=== PATIENT | male | born 1975 | race Caucasian/White ===

== ENCOUNTER 2017-02-22 10:15 | Emergency (ER) | payer OTHER ==
[~2017-02-22] VITALS: Ht 182.9 cm; Wt 90.0 kg
[2017-02-22 10:21] VITALS: BP 149/70; PULSE 97; RESP 16; O2SAT 96
[2017-02-22 10:45] VITALS: TEMP 98.6
[2017-02-22] MEDS ORDERED: BENZ100 PO (10:57)
--- NOTE | 2017-02-22 10:58 | PD ---
HPI Chief Complaint: Cold / Flu Symptoms Time Seen by Provider: 10:29 Travel History International Travel<30 days: No Contact w/Intl Traveler<30days: No Traveled to known affect area: No History of Present Illness HPI 41-year-old male here for evaluation of "flulike symptoms" 5 days. Patient reports body aches,congestion, and mild fatigue. He denies fever or chills, headache, neck pain, chest pain, cough, shortness of breath, abdominal pain. Severity is mild. He has not attempted to take any Tylenol or Motrin. No alleviating factors. [facility] Past Medical History Medical History: Denies Significant Hx Social History Alcohol Use: Yes Tobacco Use: No Substance Use: No Allergies-Medications (Allergen,Severity, Reaction): Coded Allergies: No Known Allergies (Unverified , 02/22/17) Reported Meds & Prescriptions Reported Meds & Active Scripts Active No Active Prescriptions or Reported Medications Review of Systems Except as stated in HPI: all other systems reviewed are Neg General / Constitutional: No: Fever Eyes: No: Visual changes HENT: No: Headaches Physical Exam Narrative GENERAL: Well-appearing male SKIN: Warm and dry. HEAD: Normocephalic. EYES: No scleral icterus. No injection or drainage. NECK: Supple, trachea midline. No JVD or lymphadenopathy. No meningismus CARDIOVASCULAR: Regular rate and rhythm without murmurs, gallops, or rubs. RESPIRATORY: Breath sounds equal bilaterally. No accessory muscle use. GASTROINTESTINAL: Abdomen soft, non-tender, nondistended. MUSCULOSKELETAL: No cyanosis, or edema. BACK: Nontender without obvious deformity. No CVA tenderness. Data Data Last Documented VS Vital Signs Date Time Temp Pulse Resp B/P (MAP) Pulse Ox O2 Delivery O2 Flow Rate FiO2 02/22/17 10:21 97 16 149/70 (96) 96 MDM Medical Decision Making Medical Screen Exam Complete: Yes Emergency Medical Condition: Yes Differential Diagnosis Influenza, viral infection, URI Narrative Course 41-year-old male here for evaluation of "flulike symptoms" 5 days. Patient reports body aches,congestion, and mild fatigue. He denies fever or chills, headache, neck pain, chest pain, cough, shortness of breath, abdominal pain. Severity is mild. He is nontoxic appearing. His vital signs are stable. His physical exam is essentially benign. His history and physical exam is consistent with a mild viral infection. Discussed symptomatic treatment. Diagnosis Primary Impression: Viral infection Referrals: Primary Care Physician Additional Instructions: Take [id number] Motrin [id number] milligrams every 6-8 hours as needed for pain. Stay well hydrated by drinking plenty of fluids. Take Tessalon Perles as needed for cough. Follow-up with your doctor Scripts Benzonatate (Tessalon Perles) 100 Mg Cap 100 MG PO TID Y for COUGH for 5 Days, CAP 0 Refills Prov: Maria Del Carmen Hull 02/22/17 Disposition: 01 DISCHARGE HOME Condition: Stable Maria Del Carmen Hull Feb 22, 2017 10:58
== END 2017-02-22 11:11 | disposition home or self-care (01) ==
LOC: PHEFT 10:15
DX: B34.9 Viral infection, unspecified (principal)
CPT/HCPCS: 99283

== ENCOUNTER 2017-02-26 15:12 | Observation (INO) | payer OTHER ==
[~2017-02-26] VITALS: Ht 182.9 cm; Wt 88.2 kg
[2017-02-26] VITALS (8 sets, daily range): BP systolic 115–130; BP diastolic 59–73; PULSE 79–102; RESP 16; TEMP 98.3–101.8; O2SAT 96–100
[~2017-02-26 15:12] MED LIST: BENZ100 PO
[2017-02-26] MEDS ORDERED: SODIUM CHLOR 0.9% 1000 ML INJ 1,000 ML IV ONE (16:30)
--- NOTE | 2017-02-26 16:57 | RADRPT ---
EXAM DATE/TIME: 02/26/2017 16:40 [facility] COMPARISON: No previous studies available for comparison. INDICATIONS : Chest discomfort, flu-like symptoms for 1 week MEDICAL HISTORY : None. SURGICAL HISTORY : None. ENCOUNTER: Initial ACUITY: 1 week PAIN SCORE: 0/10 LOCATION: Bilateral chest FINDINGS: Portable AP view of the chest demonstrates a normal-sized cardiac silhouette. No effusion, consolidat ion, or pneumothorax is visualized. The bones and soft tissues demonstrate no acute abnormality. CONCLUSION: No acute cardiopulmonary abnormality is identified. Amilcar Villar MD on February 26, 2017 at 16:55 Board Certified Radiologist. This report was verified electronically.
[2017-02-26 17:04] LABS: BLOOD, URINE SMALL (NEG); GLUCOSE,URINE NEG (NEG); KETONE, URINE 15 mg/dL (NEG); NITRITE,URINE NEG (NEG); PH, URINE 8.5 (5.0-8.5)
[2017-02-26 17:07] LABS: CHLORIDE 100 MEQ/L (98-107); SODIUM (NA) 135 MEQ/L (136-145)
[2017-02-26 17:11] LABS: ANION GAP 7 MEQ/L (5-15); BICARBONATE 28.2 MEQ/L (21.0-32.0); BLOOD UREA NITROGEN 9 MG/DL (7-18)
--- NOTE | 2017-02-26 17:13 | PD ---
HPI Chief Complaint: Cold / Flu Symptoms Time Seen by Provider: 16:16 Travel History International Travel<30 days: No Contact w/Intl Traveler<30days: No Traveled to known affect area: No History of Present Illness HPI 41-year-old male patient who had gotten a flu shot 2 weeks ago, was seen in the ER 5 days ago for flulike symptoms, diagnosed with viral illness, and was seen today in urgent care because his symptoms are not improving. He states he still having body aches, headaches, nausea, fevers. He denies any coughing, shortness of breath, chest pains, abdominal pains, or other symptoms. A flu test had been done earlier which was negative. He is concerned because the symptoms are not improving after 5 days. He denies any sick contacts. Patient admits he has also had dental work done last week as well. He denies any IV drug use or any new sex partners. Modifying Factors: None Associated Signs & Symptoms: Flulike symptoms, fevers, nausea, headaches for 5 days Risk Factors: Recent dental work PFSH Past Medical History Medical History: Denies Significant Hx Tetanus Vaccination: Unknown Influenza Vaccination: Yes Social History Alcohol Use: Yes (occas. beer) Tobacco Use: No Substance Use: No Allergies-Medications (Allergen,Severity, Reaction): Coded Allergies: No Known Allergies (Unverified , 02/26/17) Reported Meds & Prescriptions Reported Meds & Active Scripts Active Tessalon Perles (Benzonatate) 100 Mg Cap 100 Mg PO TID PRN 5 Days Review of Systems Except as stated in HPI: all other systems reviewed are Neg Physical Exam Narrative GENERAL: Well-developed middle age white male patient currently in mild distress. Awake and oriented 3. SKIN: Focused skin assessment warm/dry. HEAD: Atraumatic. Normocephalic. EYES: Pupils equal and round. No scleral icterus. No injection or drainage. ENT: Mucosa pink and moist. No erythema or exudates. No uvular edema. No uvular , palatal, or tonsillar deviation. Airway patent. NECK: Trachea midline. No JVD. Supple. CARDIOVASCULAR: Regular rate and rhythm. No murmur appreciated. RESPIRATORY: No accessory muscle use. Clear to auscultation. Breath sounds equal bilaterally. GASTROINTESTINAL: Abdomen soft, non-tender, nondistended. Hepatic and splenic margins not palpable. MUSCULOSKELETAL: No obvious deformities. No clubbing. No cyanosis. No edema. NEUROLOGICAL: Awake and alert. No obvious cranial nerve deficits. Motor grossly within normal limits. Normal speech. PSYCHIATRIC: Appropriate mood and affect; insight and judgment normal. Data Data Last Documented VS Vital Signs Date Time Temp Pulse Resp B/P (MAP) Pulse Ox O2 Delivery O2 Flow Rate FiO2 02/26/17 17:53 100 16 123/62 (82) 99 Room Air 02/26/17 15:45 101.8 Orders Orders Complete Blood Count With Diff (02/26/17 16:16) Comprehensive Metabolic Panel (02/26/17 16:16) Lactic Acid Sepsis Protocol (02/26/17 16:16) Urinalysis - C+S If Indicated (02/26/17 16:16) Influenzae A/B Antigen (02/26/17 16:16) Blood Culture (02/26/17 16:16) Chest, Single Ap (02/26/17 16:16) Blood Glucose (02/26/17 16:16) Ecg Monitoring (02/26/17 16:16) Iv Access Insert/Monitor (02/26/17 16:16) Oximetry (02/26/17 16:16) Oxygen Administration (02/26/17 16:16) Sodium Chlor 0.9% 1000 Ml Inj (Ns 1000 M (02/26/17 16:30) Us Abdomen Gallbladder (02/26/17 17:25) Ceftriaxone Inj (Rocephin Inj) (02/26/17 18:51) Ibuprofen (Motrin) (02/26/17 19:00) Vancomycin Inj (Vancomycin Inj) (02/26/17 19:15) Labs Laboratory Tests Test 02/26/17 16:25 02/26/17 16:45 White Blood Count 4.2 TH/MM3 Red Blood Count 4.33 MIL/MM3 Hemoglobin 12.9 GM/DL Hematocrit 37.3 % Mean Corpuscular Volume 86.0 FL Mean Corpuscular Hemoglobin 29.6 PG Mean Corpuscular Hemoglobin Concent 34.5 % Red Cell Distribution Width 12.4 % Platelet Count 109 TH/MM3 Mean Platelet Volume 9.7 FL CBC Comment AUTO DIFF Differential Total Cells Counted 100 Neutrophils % (Manual) 39 % Band Neutrophils % 13 % Lymphocytes % 46 % Monocytes % 2 % Neutrophils # (Manual) 2.2 TH/MM3 Differential Comment FINAL DIFF MANUAL Platelet Estimate LOW Platelet Morphology Comment NORMAL Red Cell Morphology Comment NORMAL Blood Urea Nitrogen 9 MG/DL Creatinine 0.77 MG/DL Random Glucose 95 MG/DL Total Protein 7.1 GM/DL Albumin 3.3 GM/DL Calcium Level 8.5 MG/DL Alkaline Phosphatase 183 U/L Aspartate Amino Transf (AST/SGOT) 172 U/L Alanine Aminotransferase (ALT/SGPT) 193 U/L Total Bilirubin 0.8 MG/DL Sodium Level 135 MEQ/L Potassium Level 4.0 MEQ/L Chloride Level 100 MEQ/L Carbon Dioxide Level 28.2 MEQ/L Anion Gap 7 MEQ/L Estimat Glomerular Filtration Rate 112 ML/MIN Lactic Acid Level 1.2 mmol/L Urine Color YELLOW Urine Turbidity CLEAR Urine pH 8.5 Urine Specific [place] 1.018 Urine Protein TRACE mg/dL Urine Glucose (UA) NEG mg/dL Urine Ketones 15 mg/dL Urine Occult Blood SMALL Urine Nitrite NEG Urine Bilirubin NEG Urine Leukocyte Esterase NEG Urine RBC 0-3 /hpf Urine Squamous Epithelial Cells 0-5 /hpf Microscopic Urinalysis Comment CATH-CULT NOT IND MDM Medical Decision Making Medical Screen Exam Complete: Yes Emergency Medical Condition: Yes Medical Record Reviewed: Yes Interpretation(s) Last 24 hours Impressions Gall Bladder Ultrasound 02/26/17 1725 Signed Impressions: Service Date/Time: Sunday, February 26, 2017 17:37 - CONCLUSION: Normal examination. Sean Donald Jr., MD Chest X-Ray 02/26/17 1616 Signed Impressions: Service Date/Time: Sunday, February 26, 2017 16:40 - CONCLUSION: No acute cardiopulmonary abnormality is identified. Amilcar Villar MD Laboratory Tests Test 02/26/17 16:25 02/26/17 16:45 Red Blood Count 4.33 MIL/MM3 (4.50-5.90) Hemoglobin 12.9 GM/DL (13.0-17.0) Hematocrit 37.3 % (39.0-51.0) Platelet Count 109 TH/MM3 (150-450) Band Neutrophils % 13 % (0-6) Lymphocytes % 46 % (9-44) Platelet Estimate LOW (NORMAL) Albumin 3.3 GM/DL (3.4-5.0) Alkaline Phosphatase 183 U/L (45-117) Aspartate Amino Transf (AST/SGOT) 172 U/L (15-37) Alanine Aminotransferase (ALT/SGPT) 193 U/L (12-78) Sodium Level 135 MEQ/L (136-145) Urine Ketones 15 mg/dL (NEG) Urine Occult Blood SMALL (NEG) Last 24 hours Impressions Gall Bladder Ultrasound 02/26/17 1725 Signed Impressions: Service Date/Time: Sunday, February 26, 2017 17:37 - CONCLUSION: Normal examination. Sean Donald Jr., MD Chest X-Ray 02/26/17 1616 Signed Impressions: Service Date/Time: Sunday, February 26, 2017 16:40 - CONCLUSION: No acute cardiopulmonary abnormality is identified. Amilcar Villar MD Differential Diagnosis Influenza versus viral illness versus sepsis Narrative Course Lab work did not show significant leukocytosis although does show bandemia and elevated lymphocyte counts. He did have some recent dental work done and it is uncertain whether this could be related to dental work, questionable valvular pathology before this issue. Cultures were done and IV antibiotics were initiated in the ER. Influenza test is negative. UA and chest x-ray was unremarkable. He is tachycardic and febrile the ER. I have tried to talk to the patient regarding findings and have talked about a lumbar puncture in order to rule out meningitis. A missed meningitis can cause further morbidity and mortality, and I have talked to the patient regarding this issue as well. However, he is declining LP at this time. Considering his history, and the fact that we cannot completely rule out underlying sepsis or meningitis, my plan would be to admit him for observation at this point. Diagnosis Primary Impression: Fever of unknown origin Admitting Information Admitting Physician Requests: Admit Dusty Mcallister MD Feb 26, 2017 17:13
[2017-02-26 17:14] LABS: ALT (GPT) 193 U/L (12-78); AST (GOT) 172 U/L (15-37); GLOMERULAR FILTRATION RATE 112 ML/MIN (>89)
[2017-02-26 17:15] LABS: COMMENT (UR) CATH-CULT NOT IND; CULTURE IF INDICATED CATH CULTURE NOT IND; RBC, URINE 0-3 /hpf (0-3); SQUAMOUS EPITHELIAL CELL URINE 0-5 /hpf (0-5); URINE COLOR YELLOW (YELLW/STRAW)
[2017-02-26 17:16] LABS: TOTAL BILIRUBIN ADULT 0.8 MG/DL (0.2-1.0)
[2017-02-26 17:17] LABS: ALKALINE PHOSPHATASE 183 U/L (45-117)
[2017-02-26 17:18] LABS: HEMATOCRIT 37.3 % (39.0-51.0); MEAN CORPUSCULAR HEMOGLOBIN 29.6 PG (27.0-34.0); MEAN CORPUSCULAR HGB CONC 34.5 % (32.0-36.0); PLATELET COUNT 109 TH/MM3 (150-450); RED BLOOD COUNT 4.33 MIL/MM3 (4.50-5.90); RED CELL DISTRIBUTION WIDTH 12.4 % (11.6-17.2); WHITE BLOOD COUNT 4.2 TH/MM3 (4.0-11.0)
[2017-02-26 17:29] LABS: HEMO FLAGS AUTO DIFF
[2017-02-26 18:06] LABS: BANDS 13 % (0-6); NEUTROPHIL # MANUAL DIFF 2.2 TH/MM3 (1.8-7.7); POLYS (SEG NEUTROPHILS) 39 % (16-70); WBC DIFF SAMPLE 100
[2017-02-26 18:07] LABS: PLATELET ESTIMATE SMEAR LOW (NORMAL); PLATELET MORPHOLOGY NORMAL (NORMAL); SCAN/DIFF FINAL DIFF MANUAL
--- NOTE | 2017-02-26 18:35 | RADRPT ---
EXAM DATE/TIME: 02/26/2017 17:37 [facility] COMPARISON: No previous studies available for comparison. INDICATIONS : Nausea and vomiting after having the flu shot five days ago. MEDICAL HISTORY : Nausea and vomiting. SURGICAL HISTORY : None. ENCOUNTER: Initial ACUITY: 4-6 days PAIN SCORE: 0/10 LOCATION: Right upper quadrant MEASUREMENTS: LIVER: 18.8 cm length COMMON DUCT: 3 mm RIGHT KIDNEY: 12.7 x 5.0 x 5.2 cm FINDINGS: LIVER: Normal echotexture without focal lesion or ductal dilatation. COMMON DUCT: No intraluminal mass or stone visualized. GALLBLADDER: Contains no stones, demonstrates no wall thickening or pericholecystic fluid. PANCREAS: The visualized portions are within normal limits. RIGHT KIDNEY: No evidence of hydronephrosis, stone, or mass. CONCLUSION: Normal examination. Sean Donald Jr., MD on February 26, 2017 at 18:32 Board Certified Radiologist. This report was verified electronically.
[2017-02-26] MEDS ORDERED: cefTRIAXone INJ 2,000 MG in SODIUM CHLORIDE 0.9% INJ 100 ML IV STA (18:51)
[2017-02-26] MEDS ORDERED: IBUPROFEN 600 MG TAB PO ONE (19:00)
[2017-02-26] MEDS ORDERED: VANCOMYCIN INJ 1,000 MG in SODIUM CHLOR 0.9% 250 ML INJ 250 ML IV ONE (19:15)
[2017-02-26] MEDS ORDERED: BENZONATATE 100 MG CAP PO PRN (20:30)
--- NOTE | 2017-02-26 20:35 | HHI.HP ---
HPI Service [facility] Primary Care Physician Pj Fowler MD Admission Diagnosis fever of unknown origin/elevated LFTs Chief Complaint: 1 week of fever Travel History International Travel<30 Days: No Contact w/Intl Traveler <30 Da: No Traveled to Known Affected Are: No History of Present Illness 41-year-old male patient who had gotten a flu shot 2 weeks ago, was seen in the ER 5 days ago for flulike symptoms, diagnosed with viral illness, and was seen today in urgent care because his symptoms are not improving. He states he still having body aches, headaches, nausea, fevers. He denies any coughing, shortness of breath, chest pains, abdominal pains, or other symptoms. A flu test had been done earlier which was negative. He is concerned because the symptoms are not improving after 5 days. He denies any sick contacts. Patient admits he has also had dental work done last week as well,teeth cleaning and tightening braces. He denies any IV drug use or any new sex partners. In er was found to have elevated LFT will admit ID evaluation recheck labs . Review of Systems Constitutional: COMPLAINS OF: Fatigue, Fever, Chills Other headache Past Family Social History Past Medical History none Past Surgical History knee surgery as teenager Reported Medications was given cough capsules in urgent care but has no cough Allergies: Coded Allergies: No Known Allergies (Unverified , 02/26/17) Social History occ beer non smoker Physical Exam Vital Signs Vital Signs Date Time Temp Pulse Resp B/P (MAP) Pulse Ox O2 Delivery O2 Flow Rate FiO2 02/26/17 19:00 98.8 92 16 119/67 (84) 96 Room Air 02/26/17 19:00 16 96 Room Air 02/26/17 17:53 100 16 123/62 (82) 99 Room Air 02/26/17 16:44 100 Room Air 02/26/17 16:44 16 100 Room Air 02/26/17 15:45 101.8 102 16 117/73 (88) 99 Room Air 02/26/17 15:36 96 16 100 Room Air 02/26/17 15:18 100.0 98 16 130/73 (92) 100 Physical Exam GENERAL: This is a well-nourished, well-developed patient, in no apparent distress. SKIN: No rashes, ecchymoses or lesions. Cool and dry. HEAD: Atraumatic. Normocephalic. No temporal or scalp tenderness. EYES: Pupils equal round and reactive. Extraocular motions intact. No scleral icterus. No injection or drainage. ENT: Nose without bleeding, purulent drainage or septal hematoma. Throat without erythema, tonsillar hypertrophy or exudate. Uvula midline. Airway patent. NECK: Trachea midline. No JVD or lymphadenopathy. Supple, nontender, no meningeal signs. CARDIOVASCULAR: Regular rate and rhythm without murmurs, gallops, or rubs. RESPIRATORY: Clear to auscultation. Breath sounds equal bilaterally. No wheezes , rales, or rhonchi. GASTROINTESTINAL: Abdomen soft, non-tender, nondistended. No hepato-splenomegaly , or palpable masses. No guarding. MUSCULOSKELETAL: Extremities without clubbing, cyanosis, or edema. No joint tenderness, effusion, or edema noted. No calf tenderness. Negative Homans sign bilaterally. NEUROLOGICAL: Awake and alert. Cranial nerves II through XII intact. Motor and sensory grossly within normal limits. Five out of 5 muscle strength in all muscle groups. Normal speech. Laboratory Laboratory Tests Test 02/26/17 16:25 02/26/17 16:45 White Blood Count 4.2 Red Blood Count 4.33 Hemoglobin 12.9 Hematocrit 37.3 Mean Corpuscular Volume 86.0 Mean Corpuscular Hemoglobin 29.6 Mean Corpuscular Hemoglobin Concent 34.5 Red Cell Distribution Width 12.4 Platelet Count 109 Mean Platelet Volume 9.7 CBC Comment AUTO DIFF Differential Total Cells Counted 100 Neutrophils % (Manual) 39 Band Neutrophils % 13 Lymphocytes % 46 Monocytes % 2 Neutrophils # (Manual) 2.2 Differential Comment FINAL DIFF MANUAL Platelet Estimate LOW Platelet Morphology Comment NORMAL Red Cell Morphology Comment NORMAL Blood Urea Nitrogen 9 Creatinine 0.77 Random Glucose 95 Total Protein 7.1 Albumin 3.3 Calcium Level 8.5 Alkaline Phosphatase 183 Aspartate Amino Transf (AST/SGOT) 172 Alanine Aminotransferase (ALT/SGPT) 193 Total Bilirubin 0.8 Sodium Level 135 Potassium Level 4.0 Chloride Level 100 Carbon Dioxide Level 28.2 Anion Gap 7 Estimat Glomerular Filtration Rate 112 Lactic Acid Level 1.2 Urine Color YELLOW Urine Turbidity CLEAR Urine pH 8.5 Urine Specific [place] 1.018 Urine Protein TRACE Urine Glucose (UA) NEG Urine Ketones 15 Urine Occult Blood SMALL Urine Nitrite NEG Urine Bilirubin NEG Urine Leukocyte Esterase NEG Urine RBC 0-3 Urine Squamous Epithelial Cells 0-5 Microscopic Urinalysis Comment CATH-CULT NOT IND Date/Time Source Procedure Growth Status 02/26/17 16:36 Blood Peripheral Aerobic Blood Culture Pending Received 02/26/17 16:36 Blood Peripheral Anaerobic Blood Culture Pending Received 02/26/17 16:30 Nasal Washing Influenza Types A,B Antigen (BONNIE) - Final NEGATIVE FOR FLU A AND B ANTIGEN.... Complete Result Diagram: 02/26/17 1625 02/26/17 1625 Imaging Last 24 hours Impressions Gall Bladder Ultrasound 02/26/17 1725 Signed Impressions: Service Date/Time: Sunday, February 26, 2017 17:37 - CONCLUSION: Normal examination. Sean Donald Jr., MD Chest X-Ray 02/26/17 1616 Signed Impressions: Service Date/Time: Friday, February 26, 2017 16:40 - CONCLUSION: No acute cardiopulmonary abnormality is identified. Amilcar Villar MD Course in er was started on vancomycin and rocephin,to cover possible meningitis , patient declined LP really has no neurologic changes except headache Caprini VTE Risk Assessment Caprini VTE Risk Assessment: No/Low Risk (score <= 1) Caprini Risk Assessment Model Point Value = 1 Point Value = 2 Point Value = 3 Point Value = 5 Age 41-60 Minor surgery BMI > 25 kg/m2 Swollen legs Varicose veins or History of unexplained or recurrent spontaneous Oral contraceptives or hormone replacement Sepsis (< 1 month) Serious lung disease, including pneumonia (< 1 month) Abnormal pulmonary function Acute myocardial infarction Congestive heart failure (< 1 month) History of inflammatory bowel disease Medical patient at bed rest Age 61-74 Arthroscopic surgery Major open surgery (> 45 min) Laparoscopic surgery (> 45 min) Malignancy Confined to bed (> 72 hours) Immobilizing plaster cast Central venous access Age >= 75 History of VTE Family history of VTE Factor V Leiden Prothrombin [id number] Lupus anticoagulant Anticardiolipin antibodies Elevated serum homocysteine Heparin-induced thrombocytopenia Other congenital or acquired thrombophilia Stroke (< 1 month) Elective arthroplasty Hip, pelvis, or leg fracture Acute spinal cord injury (< 1 month) Prophylaxis Regimen Total Risk Factor Score Risk Level Prophylaxis Regimen 0-1 Low Early ambulation 2 Moderate Order ONE of the following: *Sequential Compression Device (SCD) *Heparin 5000 units SQ BID 3-4 Higher Order ONE of the following medications: *Heparin 5000 units SQ TID *Enoxaparin/Lovenox 40 mg SQ daily (WT < 150 kg, CrCl > 30 mL/min) *Enoxaparin/Lovenox 30 mg SQ daily (WT < 150 kg, CrCl > 10-29 mL/min) *Enoxaparin/Lovenox 30 mg SQ BID (WT < 150 kg, CrCl > 30 mL/min) AND/OR *Sequential Compression Device (SCD) 5 or more Highest Order ONE of the following medications: *Heparin 5000 units SQ TID (Preferred with Epidurals) *Enoxaparin/Lovenox 40 mg SQ daily (WT < 150 kg, CrCl > 30 mL/min) *Enoxaparin/Lovenox 30 mg SQ daily (WT < 150 kg, CrCl > 10-29 mL/min) *Enoxaparin/Lovenox 30 mg SQ BID (WT < 150 kg, CrCl > 30 mL/min) AND *Sequential Compression Device (SCD) Assessment and Plan Problem List: (1) Fever of unknown origin ICD Codes: R50.9 - Fever, unspecified Status: Acute Plan: obtain blood cultures chest xray normal empiric on rocephin and vancomycin will get ID evaluation obtain CT abdomen for further evaluation (2) Elevated LFTs ICD Codes: R79.89 - Other specified abnormal findings of blood chemistry Plan: obtain hepatitis profile and follow up labs CT abdomen Assessment and Plan further plan as case progresses Code Status full Discussed Condition With patient Harry Vernon MD Feb 26, 2017 20:35
[2017-02-26] MEDS ORDERED: SENNOSIDES 8.6 MG TAB PO PRN (20:45)
[2017-02-26] MEDS ORDERED: SODIUM CHLORIDE 0.9% FLUSH 10 ML FLUSH IV FLUSH PRN (20:45)
[2017-02-26] MEDS ORDERED: NALOXONE HCL 0.4 MG/ML AMP IV PUSH PRN (20:45)
[2017-02-26] MEDS ORDERED: MAGNESIUM HYDROXIDE SUSP 30 ML CUP PO PRN (20:45)
[2017-02-26] MEDS ORDERED: BISACODYL 10 MG SUPP RECTAL PRN (20:45)
[2017-02-26] MEDS ORDERED: LACTULOSE SYRUP 20 GM/30 ML CUP PO PRN (20:45)
[2017-02-26] MEDS ORDERED: ONDANSETRON HCL 4 MG/2 ML VIAL IVP PRN (20:45)
[2017-02-26] MEDS ORDERED: Vancomycin Consult Pharmacy 1 EA OTHER SCH (21:00)
[2017-02-26] MEDS: DOCUSATE SODIUM 50 MG/SENNA 8.6 MG TAB PO SCH (21:00)
[2017-02-26] MEDS: SODIUM CHLORIDE 0.9% FLUSH 10 ML FLUSH IV FLUSH SCH (21:48)
--- NOTE | 2017-02-26 21:51 | RADRPT ---
EXAM DATE/TIME: 02/26/2017 21:29 [facility] COMPARISON: No previous studies available for comparison. INDICATIONS : Fever. ORAL CONTRAST: No oral contrast ingested. RADIATION DOSE: 16.36 CTDIvol (mGy) MEDICAL HISTORY : None SURGICAL HISTORY : None. ENCOUNTER: Initial ACUITY: 1 week PAIN SCALE: 0/10 LOCATION: abdomen TECHNIQUE: Volumetric scanning of the abdomen was performed. Using automated exposure control and adjustment of the mA and/or kV according to patient size, radiation dose was kept as low as reasonably achievable to obtain optimal diagnostic quality images. DICOM format image data is available electronically for review and comparison. FINDINGS: LOWER LUNGS: The visualized lower lungs are clear. LIVER: Homogeneous density without lesion. There is no dilation of the biliary tree. No calcified gallston es. SPLEEN: Normal size without lesion. PANCREAS: Within normal limits. KIDNEYS: Normal in size and shape. There is no mass, stone, or hydronephrosis. ADRENAL GLANDS: Within normal limits. AORTA/RETROPERITONEAL: There is no aneurysm or lymphadenopathy. BOWEL/MESENTERY: The stomach and visualized small and large bowel demonstrate no abnormality. MUSCULOSKELETAL: Within normal limits for patient age. CONCLUSION: Normal examination. Sean Donald Jr., MD on February 26, 2017 at 21:48 Board Certified Radiologist. This report was verified electronically.
[2017-02-26] MEDS: TEMAZEPAM 15 MG CAP PO PRN (22:13)
[2017-02-27] VITALS (7 sets, daily range): BP systolic 115–119; BP diastolic 64–74; PULSE 80–103; RESP 14–16; TEMP 96.7–101.3; O2SAT 95–99
[2017-02-27] MEDS: VANCOMYCIN INJ 1,800 MG in SODIUM CHLORID 0.9% 500 ML INJ 500 ML IV SCH ×2 (03:24→16:26)
[2017-02-27] MEDS: IBUPROFEN 400 MG TAB PO PRN ×2 (05:50→11:08)
[2017-02-27 06:33] LABS: HEMATOCRIT 36.5 % (39.0-51.0); MEAN CELL VOLUME 87.6 FL (80.0-100.0); MEAN CORPUSCULAR HEMOGLOBIN 30.3 PG (27.0-34.0); MEAN CORPUSCULAR HGB CONC 34.6 % (32.0-36.0); PLATELET COUNT 98 TH/MM3 (150-450); RED BLOOD COUNT 4.17 MIL/MM3 (4.50-5.90); RED CELL DISTRIBUTION WIDTH 12.7 % (11.6-17.2); WHITE BLOOD COUNT 3.9 TH/MM3 (4.0-11.0)
[2017-02-27 06:40] LABS: CHLORIDE 104 MEQ/L (98-107); SODIUM (NA) 139 MEQ/L (136-145)
[2017-02-27 06:43] LABS: ANION GAP 5 MEQ/L (5-15); BICARBONATE 30.4 MEQ/L (21.0-32.0)
[2017-02-27 06:44] LABS: BLOOD UREA NITROGEN 11 MG/DL (7-18); HEMO FLAGS AUTO DIFF
[2017-02-27 06:46] LABS: ALT (GPT) 223 U/L (12-78)
[2017-02-27 06:47] LABS: AST (GOT) 222 U/L (15-37); GLOMERULAR FILTRATION RATE 111 ML/MIN (>89)
[2017-02-27 06:48] LABS: TOTAL BILIRUBIN ADULT 0.8 MG/DL (0.2-1.0)
[2017-02-27 06:49] LABS: ALKALINE PHOSPHATASE 206 U/L (45-117)
[2017-02-27 07:55] LABS: ATYPICAL LYMPHOCYTES 29 % (0-0); BANDS 4 % (0-6); NEUTROPHIL # MANUAL DIFF 1.5 TH/MM3 (1.8-7.7); POLYS (SEG NEUTROPHILS) 34 % (16-70); WBC DIFF SAMPLE 100
[2017-02-27 07:56] LABS: PLATELET ESTIMATE SMEAR LOW (NORMAL); PLATELET MORPHOLOGY NORMAL (NORMAL); SCAN/DIFF FINAL DIFF MANUAL
[2017-02-27] MEDS: DOCUSATE SODIUM 50 MG/SENNA 8.6 MG TAB PO SCH ×2 (09:00→22:54)
[2017-02-27] MEDS: SODIUM CHLORIDE 0.9% FLUSH 10 ML FLUSH IV FLUSH SCH ×2 (09:33→23:01)
--- NOTE | 2017-02-27 10:17 | HHI.PR ---
Subjective Remarks Patient feeling a little better regarding headache but did have temperature 101 last night and on today's blood test liver function increased a little ,await ID will also ask GI to see hepatitis panel pending. Objective Vitals GENERAL: SKIN: Warm and dry. HEAD: Atraumatic. Normocephalic. EYES: Pupils equal and round. No scleral icterus. No injection or drainage. ENT: No nasal bleeding or discharge. Mucous membranes pink and moist. NECK: Trachea midline. No JVD. CARDIOVASCULAR: Regular rate and rhythm. RESPIRATORY: No accessory muscle use. Clear to auscultation. Breath sounds equal bilaterally. GASTROINTESTINAL: Abdomen soft, non-tender, nondistended. Hepatic and splenic margins not palpable. MUSCULOSKELETAL: Extremities without clubbing, cyanosis, or edema. No obvious deformities. NEUROLOGICAL: Awake and alert. No obvious cranial nerve deficits. Motor grossly within normal limits. Five out of 5 muscle strength in the arms and legs. Normal speech. PSYCHIATRIC: Appropriate mood and affect; insight and judgment normal. Vital Signs Date Time Temp Pulse Resp B/P (MAP) Pulse Ox O2 Delivery O2 Flow Rate FiO2 02/27/17 07:00 18 02/27/17 05:46 101.3 02/27/17 04:00 98.5 85 16 115/68 (84) 99 02/27/17 00:00 98.3 80 16 115/64 (81) 99 02/26/17 23:59 79 02/26/17 21:00 98.3 80 16 115/64 (81) 99 02/26/17 20:41 98.3 95 16 122/59 (80) 96 02/26/17 19:00 98.8 92 16 119/67 (84) 96 Room Air 02/26/17 19:00 16 96 Room Air 02/26/17 17:53 100 16 123/62 (82) 99 Room Air 02/26/17 16:44 100 Room Air 02/26/17 16:44 16 100 Room Air 02/26/17 15:45 101.8 102 16 117/73 (88) 99 Room Air 02/26/17 15:36 96 16 100 Room Air 02/26/17 15:18 100.0 98 16 130/73 (92) 100 Result Diagram: 02/27/17 0555 02/27/17 0555 Imaging Last 24 hours Impressions Gall Bladder Ultrasound 02/26/17 1725 Signed Impressions: Service Date/Time: Sunday, February 26, 2017 17:37 - CONCLUSION: Normal examination. Sean Donald Jr., MD Chest X-Ray 02/26/17 1616 Signed Impressions: Service Date/Time: Sunday, February 26, 2017 16:40 - CONCLUSION: No acute cardiopulmonary abnormality is identified. Amilcar Villar MD A/P Problem List: (1) Fever of unknown origin ICD Codes: R50.9 - Fever, unspecified Status: Acute Plan: obtain blood cultures chest xray normal empiric on rocephin and vancomycin will get ID evaluation ,CT abd-normal ultrasound and cxr normal blood c/s pending hepatits panel pending ,did have temp [id number] last night (2) Elevated LFTs ICD Codes: R79.89 - Other specified abnormal findings of blood chemistry Plan: i will get GI evaluation as LFT have increased Assessment and Plan as above have added mono test Harry Vernon MD Feb 27, 2017 10:17
--- NOTE | 2017-02-27 17:30 | PD.CONS ---
History of Present Illness Service ID CONSULT DR HANKINS Consult Requested By Reason for Consult FEVER Primary Care Physician Pj Fowler MD Diagnoses: (1) Fever of unknown origin (2) Elevated LFTs History of Present Illness 41 yr old male in routine health until a week after he had the flu vaccine. He had a flu shot 02/11 and the evening of [place] after being out with his children started to have sweats and aches. He continued to worsen over the week and finally came in to ER. He did not have any nvd. No sob or cough. He has not had any new medication. He has not had any falls. No recent travel. He has not had any other sick contact. He has an and young son and his all healthy at home. No dysuria. He is feeling better today. 2 days after he began to feel poorly he had a routine dental procedure and felt they did injure his gums. Hes not had any risky behaviors. No drug use. No new sexual partner. NO tattoos. Hepatitis panel is negative. US abd normal. CXR is clear. He is currently on rocephin ./ vancomycin . (Alaina Reid) History of Present Illness Reviewed history with patient. Some bug bites 1 1/2 weeks before symptoms (Kassidy Hankins MD) Review of Systems Constitutional: COMPLAINS OF: Fever, Night Sweats Gastrointestinal: DENIES: Abdominal pain, Black stools, Bloody stools, Constipation, Diarrhea, Nausea, Vomiting Musculoskeletal: COMPLAINS OF: Neck pain (since admission), DENIES: Stiffness Integumentary: DENIES: Abnormal pigmentation Hematologic/lymphatic: DENIES: Lymphadenopathy Neurologic: COMPLAINS OF: Headache (since admission ), DENIES: Localized weakness Psychiatric: DENIES: Depression (Alaina Reid) Past Family Social History Allergies: Coded Allergies: No Known Allergies (Unverified , 02/26/17) Past Medical History Past Medical History none Past Surgical History Past Surgical History knee surgery as teenager Reported Medications Reported Medications was given cough capsules in urgent care but has no cough Family History Family reviewed and benign from [facility] Social History NONE SMOKER NO ETOH NO ILLICIT DRUG USE (Alaina Reid) Physical Exam Vital Signs Vital Signs Date Time Temp Pulse Resp B/P (MAP) Pulse Ox O2 Delivery O2 Flow Rate FiO2 02/27/17 12:08 18 02/27/17 12:00 97.5 86 16 119/74 (89) 95 02/27/17 08:00 99.2 103 14 117/66 (83) 95 02/27/17 05:46 101.3 02/27/17 04:00 98.5 85 16 115/68 (84) 99 02/27/17 00:00 98.3 80 16 115/64 (81) 99 02/26/17 23:59 79 02/26/17 21:00 98.3 80 16 115/64 (81) 99 02/26/17 20:41 98.3 95 16 122/59 (80) 96 02/26/17 19:00 98.8 92 16 119/67 (84) 96 Room Air 02/26/17 19:00 16 96 Room Air 02/26/17 17:53 100 16 123/62 (82) 99 Room Air Physical Exam GENERAL: This is a well-nourished, well-developed patient, in no apparent distress. SKIN: No rashes, ecchymoses or lesions. Cool and dry. HEAD: Atraumatic. Normocephalic. No temporal or scalp tenderness. EYES: Pupils equal round and reactive. Extraocular motions intact. No scleral icterus. No injection or drainage. ENT: Nose without bleeding, purulent drainage or septal hematoma. Throat without erythema, tonsillar hypertrophy or exudate. Uvula midline. Airway patent. NECK: Trachea midline. No JVD or lymphadenopathy. Supple, nontender, no meningeal signs. CARDIOVASCULAR: Regular rate and rhythm without murmurs, gallops, or rubs. RESPIRATORY: Clear to auscultation. Breath sounds equal bilaterally. No wheezes , rales, or rhonchi. GASTROINTESTINAL: Abdomen soft, non-tender, nondistended. No hepato-splenomegaly , or palpable masses. No guarding. MUSCULOSKELETAL: Extremities without clubbing, cyanosis, or edema. No joint tenderness, effusion, or edema noted. No calf tenderness. Negative Homans sign bilaterally. NEUROLOGICAL: Awake and alert. Cranial nerves II through XII intact. Motor and sensory grossly within normal limits. Five out of 5 muscle strength in all muscle groups. Normal speech. Laboratory Laboratory Tests Test 02/27/17 05:55 02/27/17 10:17 White Blood Count 3.9 Red Blood Count 4.17 Hemoglobin 12.6 Hematocrit 36.5 Mean Corpuscular Volume 87.6 Mean Corpuscular Hemoglobin 30.3 Mean Corpuscular Hemoglobin Concent 34.6 Red Cell Distribution Width 12.7 Platelet Count 98 Mean Platelet Volume 9.4 CBC Comment AUTO DIFF Differential Total Cells Counted 100 Neutrophils % (Manual) 34 Band Neutrophils % 4 Lymphocytes % 30 Monocytes % 3 Neutrophils # (Manual) 1.5 Differential Comment FINAL DIFF MANUAL Atypical Lymphocytes 29 Platelet Estimate LOW Platelet Morphology Comment NORMAL Red Cell Morphology Comment NORMAL Blood Urea Nitrogen 11 Creatinine 0.78 Random Glucose 114 Total Protein 6.8 Albumin 3.0 Calcium Level 7.9 Alkaline Phosphatase 206 Aspartate Amino Transf (AST/SGOT) 222 Alanine Aminotransferase (ALT/SGPT) 223 Total Bilirubin 0.8 Sodium Level 139 Potassium Level 4.0 Chloride Level 104 Carbon Dioxide Level 30.4 Anion Gap 5 Estimat Glomerular Filtration Rate 111 Gamma Glutamyl Transpeptidase 387 Hepatitis A IgM Antibody NEGATIVE Hepatitis B Surface Antigen NEGATIVE Hepatitis B Core IgM Antibody NEGATIVE Hepatitis C Antibody NEGATIVE Monoscreen NEG Date/Time Source Procedure Growth Status 02/26/17 16:36 Blood Peripheral Aerobic Blood Culture - Preliminary NO GROWTH IN 1 DAY Resulted 02/26/17 16:36 Blood Peripheral Anaerobic Blood Culture - Preliminary NO GROWTH IN 1 DAY Resulted 02/26/17 16:30 Nasal Washing Influenza Types A,B Antigen (BONNIE) - Final NEGATIVE FOR FLU A AND B ANTIGEN.... Complete (Alaina Reid) Physical Exam No rash Chest : Clear Heart S 1 S2 normal (Kassidy Hankins MD) Result Diagram: 02/27/1755 02/27/17 0555 Assessment and Plan Problem List: (1) Fever of unknown origin ICD Codes: R50.9 - Fever, unspecified Status: Acute Plan: bc negative will monitor cultures check lipase amylase will need hiv screen continue vancomycin for now further orders to follow (2) Elevated LFTs ICD Codes: R79.89 - Other specified abnormal findings of blood chemistry Plan: worse today would stop rocephin it could cause elevated lfts check lipase amylase gi following (Alaina Reid) Problem List: (1) Fever of unknown origin ICD Codes: R50.9 - Fever, unspecified Status: Acute Plan: bc negative will monitor cultures check lipase amylase will need hiv screen continue vancomycin for now further orders to follow Check EBV and CMV serology (2) Elevated LFTs ICD Codes: R79.89 - Other specified abnormal findings of blood chemistry Plan: worse todays check lipase amylase GI following Re check LFTS Hepatitis profile negative (Kassidy Hankins MD) Alaina Reid Feb 27, 2017 17:30 Kassidy Hankins MD Feb 27, 2017 18:26
[2017-02-27] MEDS ORDERED: cefTRIAXone INJ 1,000 MG in SODIUM CHLORIDE 0.9% INJ 100 ML IV SCH (19:00)
[2017-02-27 20:48] LABS: AMYLASE 38 U/L (25-115)
[2017-02-27] MEDS: TEMAZEPAM 15 MG CAP PO PRN (23:01)
[2017-02-28] VITALS: BP 117/66; PULSE 100; RESP 16; TEMP 101.4; O2SAT 96
[2017-02-28 00:57] LABS: EBV VCA IgM Negative (Negative)
[2017-02-28 02:00] VITALS: BP 117/66; PULSE 85; RESP 16; TEMP 101.4; O2SAT 97
[2017-02-28] MEDS: IBUPROFEN 400 MG TAB PO PRN (02:15)
[2017-02-28] MEDS: VANCOMYCIN INJ 1,800 MG in SODIUM CHLORID 0.9% 500 ML INJ 500 ML IV SCH (03:56)
[2017-02-28 04:00] VITALS: BP 118/71; PULSE 80; RESP 16; O2SAT 98
[2017-02-28 04:11] VITALS: TEMP 99.1
--- NOTE | 2017-02-28 06:40 | MB ---
cc: ULI LANG M.D. DATE OF CONSULTATION 02/27/2017 DATE OF [address] Vernon REASON FOR REFERRAL Evaluate pulmonary function tests. Thank you for the consultation. HISTORY OF PRESENT ILLNESS A 41-year-old gentleman who has no past medical history, was doing well until about a week ago. Two weeks ago he had a flu shot and then about a week ago he was trick or treating on Halloween night and he felt weak after that and that he started spiking fever every night with general body aches. He stated that two days before that he was also on the field and he got multiple bites on his legs, not sure which insect type. The patient was taking a significant amount of NSAIDs every 4 hours alternating with acetaminophen for fever and general body aches. He came to the ER because of that. He was admitted and found to have moderate elevation of his liver function tests. He denied any alcohol, denied any other liver problems. . No IV drug abuse. Currently he feels better since she came to the hospital and he was treated with IV fluids and empiric vancomycin. PAST MEDICAL HISTORY Negative. PAST SURGICAL HISTORY Knee surgery as a teenager. ALLERGIES None. MEDICATIONS None. SOCIAL HISTORY Very rare amount of alcohol, maybe once every few weeks. REVIEW OF SYSTEMS All 12-points negative except HPI. PHYSICAL EXAMINATION GENERAL: Alert, oriented, in no acute distress. VITAL SIGNS: Stable. HEENT: Pupils are round, reactive to light. NECK: Supple. CHEST: Clear to auscultation and percussion. CARDIAC: Regular rate and rhythm. ABDOMEN: Soft, nondistended. Positive bowel sounds. EXTREMITIES: No edema, clubbing or cyanosis. NEUROLOGIC: Intact. PSYCHIATRIC: Psychologically appropriate. LABORATORY DATA White count 3.9, hemoglobin 12.6, platelets 98. Potassium 4.0, BUN is 11, creatinine 0.78, GGT 387, AST 222, ALT 223, alk phos 206, amylase and lipase normal. IMAGING OF CT SCAN CT scan was normal. ASSESSMENT AND PLAN A 41-year-old gentleman with elevation of liver function tests. No baseline. This could be NSAID-related since the patient was taking a large amount in the last week. Could be infectious process. Hepatitis profile was negative. I recommend doing Lyme disease titer since the patient has bug bites and he had fever with illness that responded to antibiotic. We will repeat the liver function tests. If continue to be elevated, then we will expand workup to rule out other etiology such as autoimmune hepatitis, primary biliary cirrhosis or other rare diseases which is unlikely. The patient understood the plan. I discussed it with Dr. Vernon and we will follow up with you. MD GRADY Guido/JASVIR /9:26 PM /6:31 AM
[2017-02-28 06:48] LABS: CHLORIDE 105 MEQ/L (98-107); POTASSIUM 3.8 MEQ/L (3.5-5.1); SODIUM (NA) 139 MEQ/L (136-145)
[2017-02-28 06:54] LABS: ANION GAP 5 MEQ/L (5-15); BICARBONATE 29.4 MEQ/L (21.0-32.0)
[2017-02-28 06:55] LABS: BLOOD UREA NITROGEN 8 MG/DL (7-18)
[2017-02-28 06:57] LABS: ALT (GPT) 258 U/L (12-78); AST (GOT) 203 U/L (15-37); GLOMERULAR FILTRATION RATE 111 ML/MIN (>89)
[2017-02-28 06:58] LABS: HEMATOCRIT 36.8 % (39.0-51.0); MEAN CELL VOLUME 87.8 FL (80.0-100.0); MEAN CORPUSCULAR HEMOGLOBIN 29.9 PG (27.0-34.0); PLATELET COUNT 126 TH/MM3 (150-450); RED CELL DISTRIBUTION WIDTH 13.2 % (11.6-17.2); TOTAL BILIRUBIN ADULT 0.8 MG/DL (0.2-1.0); WHITE BLOOD COUNT 5.4 TH/MM3 (4.0-11.0)
[2017-02-28 06:59] LABS: ALKALINE PHOSPHATASE 221 U/L (45-117)
[2017-02-28 07:03] LABS: HEMO FLAGS AUTO DIFF
[2017-02-28 07:44] LABS: ATYPICAL LYMPHOCYTES 20 % (0-0); BANDS 15 % (0-6); BASOPHILS 1 % (0-2); EOSINOPHILS 1 % (0-4); MYELOCYTES 1 % (0-0); PLATELET ESTIMATE SMEAR LOW (NORMAL); PLATELET MORPHOLOGY NORMAL (NORMAL); POLYS (SEG NEUTROPHILS) 21 % (16-70); SCAN/DIFF FINAL DIFF MANUAL; WBC DIFF SAMPLE 100
[2017-02-28 08:00] VITALS: BP 118/58; PULSE 76; RESP 18; TEMP 97; O2SAT 97
[2017-02-28] MEDS: SODIUM CHLORIDE 0.9% FLUSH 10 ML FLUSH IV FLUSH SCH (08:51)
[2017-02-28] MEDS: DOCUSATE SODIUM 50 MG/SENNA 8.6 MG TAB PO SCH (08:51)
[2017-02-28 12:35] VITALS: BP 110/73; PULSE 91; RESP 20; TEMP 98.6; O2SAT 97
--- NOTE | 2017-02-28 13:38 | HHI.DS ---
Discharge Summary Admission Date Feb 26, 2017 at 19:34 Admitting Diagnosis fever of unknown origin/elevated LFTs (1) Fever of unknown origin Diagnosis: Principal ICD Codes: R50.9 - Fever, unspecified Status: Acute (2) Elevated LFTs Diagnosis: Principal ICD Codes: R79.89 - Other specified abnormal findings of blood chemistry Consultants GI ID Brief History 41-year-old male patient who had gotten a flu shot 2 weeks ago, was seen in the ER 5 days ago for flulike symptoms, diagnosed with viral illness, and was seen today in urgent care because his symptoms are not improving. He states he still having body aches, headaches, nausea, fevers. He denies any coughing, shortness of breath, chest pains, abdominal pains, or other symptoms. A flu test had been done earlier which was negative. He is concerned because the symptoms are not improving after 5 days. He denies any sick contacts. Patient admits he has also had dental work done last week as well,teeth cleaning and tightening braces. He denies any IV drug use or any new sex partners. In er was found to have elevated LFT will admit ID evaluation recheck labs . CBC/BMP: 02/28/17 0535 02/28/17 0535 Significant Findings Laboratory Tests Test 02/26/17 16:25 02/26/17 16:45 02/27/17 05:55 02/27/17 10:17 Red Blood Count 4.33 MIL/MM3 (4.50-5.90) 4.17 MIL/MM3 (4.50-5.90) Hemoglobin 12.9 GM/DL (13.0-17.0) 12.6 GM/DL (13.0-17.0) Hematocrit 37.3 % (39.0-51.0) 36.5 % (39.0-51.0) Platelet Count 109 TH/MM3 (150-450) 98 TH/MM3 (150-450) Band Neutrophils % 13 % (0-6) Lymphocytes % 46 % (9-44) Platelet Estimate LOW (NORMAL) LOW (NORMAL) Albumin 3.3 GM/DL (3.4-5.0) 3.0 GM/DL (3.4-5.0) Alkaline Phosphatase 183 U/L (45-117) 206 U/L (45-117) Aspartate Amino Transf (AST/SGOT) 172 U/L (15-37) 222 U/L (15-37) Alanine Aminotransferase (ALT/SGPT) 193 U/L (12-78) 223 U/L (12-78) Sodium Level 135 MEQ/L (136-145) Urine Ketones 15 mg/dL (NEG) Urine Occult Blood SMALL (NEG) White Blood Count 3.9 TH/MM3 (4.0-11.0) Neutrophils # (Manual) 1.5 TH/MM3 (1.8-7.7) Atypical Lymphocytes 29 % (0-0) Random Glucose 114 MG/DL (74-106) Calcium Level 7.9 MG/DL (8.5-10.1) Gamma Glutamyl Transpeptidase 387 U/L (15-85) Test 02/27/17 20:15 02/28/17 05:35 Red Blood Count 4.20 MIL/MM3 (4.50-5.90) Hemoglobin 12.5 GM/DL (13.0-17.0) Hematocrit 36.8 % (39.0-51.0) Platelet Count 126 TH/MM3 (150-450) Band Neutrophils % 15 % (0-6) Monocytes % 11 % (0-8) Myelocytes 1 % (0-0) Atypical Lymphocytes 20 % (0-0) Platelet Estimate LOW (NORMAL) Albumin 3.0 GM/DL (3.4-5.0) Calcium Level 8.3 MG/DL (8.5-10.1) Alkaline Phosphatase 221 U/L (45-117) Aspartate Amino Transf (AST/SGOT) 203 U/L (15-37) Alanine Aminotransferase (ALT/SGPT) 258 U/L (12-78) PE at Discharge GENERAL: SKIN: Warm and dry. HEAD: Atraumatic. Normocephalic. EYES: Pupils equal and round. No scleral icterus. No injection or drainage. ENT: No nasal bleeding or discharge. Mucous membranes pink and moist. NECK: Trachea midline. No JVD. CARDIOVASCULAR: Regular rate and rhythm. RESPIRATORY: No accessory muscle use. Clear to auscultation. Breath sounds equal bilaterally. GASTROINTESTINAL: Abdomen soft, non-tender, nondistended. Hepatic and splenic margins not palpable. MUSCULOSKELETAL: Extremities without clubbing, cyanosis, or edema. No obvious deformities. NEUROLOGICAL: Awake and alert. No obvious cranial nerve deficits. Motor grossly within normal limits. Five out of 5 muscle strength in the arms and legs. Normal speech. PSYCHIATRIC: Appropriate mood and affect; insight and judgment normal. Hospital Course Patient admitted with essentially negative past history with recurrent fever over 1 week time with headache chills and was found to have elevated LFTs. Patient had in patient work up and his liver enzymes remained elevated in high 200 range,patient has had normal abdominal ultrasound chest xray CT abdomen,cbc shows slight decrease plt which have improved and some atypical lymphocytes , [place] test normal ozzy haney test normal sed rate normal,blood c/s normal ,flu test negative. Patient was started by er and continued on vancomycin and was on rocephin which was stopped as possible can contribute to liver elevation. Patient fever improved he required motrin only twice . ID and GI saw patient and ordered hepatitis panel which was negative pending test are HIV CMV and lyme test patient took his child out on [place] and was in shorts and remembers getting some bug bites. I will see patient myself. on Friday , recheck labs and if still elevated refer to GI consider autoimmune problem vs biliary cirrhosis Pt Condition on Discharge: Good Discharge Disposition: Discharge Home Discharge Instructions DIET: Follow Instructions for: As Tolerated, No Restrictions Activities you can perform: Regular-No Restrictions Harry Vernon MD Feb 28, 2017 13:38
[2017-02-28] MEDS ORDERED: PHARMACY ORDERED LAB ONE (15:45)
== END 2017-02-28 14:05 | disposition home or self-care (01) ==
LOC: PHED 15:12 → PHEDA 19:34 → PH3B 20:51
PROVIDERS: ADMIT Internal Medicine; ATTEND Internal Medicine
DX: R50.9 Fever, unspecified (principal); R79.89 Other specified abnormal findings of blood chemistry; R52 Pain, unspecified; R51 Headache; R07.9 Chest pain, unspecified; R11.2 Nausea with vomiting, unspecified; D72.825 Bandemia; R00.0 Tachycardia, unspecified; W57.XXXA Bitten or stung by nonvenomous insect and other nonvenomous arthropods, initial encounter
CPT/HCPCS: 71010; 74150; 76705; 80053; 80074; 81001; 82150; 82977; 83605; 83690; 85007; 85027; 85652; 86308; 86644; 86645; 86664; 86665; 87040; 87205; 87497; 87801; 87804; 96361; 96365; 96366; 96367; 96376; G0378; J0696; J3370; J7030; J7040; J7050